=== PATIENT | female | born 1970 | race Two or more races ===

== ENCOUNTER → 2018-03-03 | Day surgery (SDC) | payer OTHER ==
[~2018-03-03] MED LIST: NAPROXEN SODIU550 M1 PO; SYNTHROID150 MCG PO
== END | disposition home or self-care (01) ==
LOC: ADM 02-27 12:30 → CIR.AMB 07:54
DX: N84.0 Polyp of corpus uteri (principal); N72 Inflammatory disease of cervix uteri